=== PATIENT | male | born 1950 | race Caucasian/White ===

== ENCOUNTER 2017-10-24 05:33 | Inpatient (IN) | payer OTHER, MEDICARE ==
[2017-10-24] VITALS (8 sets, daily range): BP systolic 123–156; BP diastolic 63–75; PULSE 60–95; RESP 18–20; TEMP 98–98.6; O2SAT 95–97
[~2017-10-24] VITALS: Ht 172.7 cm; Wt 68.0 kg
[~2017-10-24 05:33] MED LIST: CEPH-460 PO; HYDR-3580 PO; WALKER WHEELS/F1 MIS
[2017-10-24] MEDS ORDERED: POVIDONE IODINE 5% (ANTISEPSIS KIT) 4 APPLICATIONS EACH NARE PRN (06:15)
[2017-10-24] MEDS ORDERED: METOPROLOL TARTRATE 25 MG TAB PO PRN (06:15)
[2017-10-24] MEDS ORDERED: SODIUM CHLORID 0.9% 500 ML IV PRN (06:15)
[2017-10-24] MEDS ORDERED: LACTATED RINGER'S 1000 ML IV PRN (06:15)
[2017-10-24] MEDS ORDERED: CHLORHEXIDINE GLUCONATE 2 % 1 PACK (2 CLOTHS) TOPICAL PRN (06:15)
[2017-10-24] MEDS ORDERED: LISI-515 PO (06:55)
[2017-10-24] MEDS ORDERED: CENTCHW4 CHEW (06:55)
[2017-10-24] MEDS ORDERED: AMLO10 PO (06:55)
[2017-10-24] MEDS ORDERED: ATOR80TA45 PO (06:55)
[2017-10-24] MEDS ORDERED: ASPI-516 CHEW (06:55)
[2017-10-24] MEDS ORDERED: PROTAMINE SULFATE 50 MG/5 ML VIAL ONE (07:18)
[2017-10-24] MEDS ORDERED: BUPIVACAINE HCL PF 0.5% 10 ML VIAL ONE (07:18)
[2017-10-24] MEDS ORDERED: HEPARIN SODIUM - IV 10,000 UNITS/10 ML VIAL ONE (07:18)
[2017-10-24] MEDS ORDERED: HEPARIN-NS/PF INJ 500 ML ONE (07:19)
[2017-10-24] MEDS ORDERED: THROMBIN (TOPICAL) 20,000 UNIT VIAL ONE (07:19)
[2017-10-24 07:33] LABS: AUTOMATED NEUTROPHIL # 5.4 TH/MM3 (1.8-7.7); BASOPHIL % 0.3 % (0.0-2.0); EOSINOPHIL # 0.3 TH/MM3 (0-0.4); EOSINOPHIL % 3.4 % (0.0-4.0); HEMATOCRIT 40.4 % (39.0-51.0); HEMOGLOBIN 14.1 GM/DL (13.0-17.0); LYMPH % 27.5 % (9.0-44.0); LYMPHOCYTE # 2.4 TH/MM3 (1.0-4.8); MEAN CELL VOLUME 96.9 FL (80.0-100.0); MEAN CORPUSCULAR HEMOGLOBIN 33.8 PG (27.0-34.0); MEAN CORPUSCULAR HGB CONC 34.9 % (32.0-36.0); MEAN PLATELET VOLUME 8.5 FL (7.0-11.0); MONO % 7.3 % (0.0-8.0); MONOCYTE # 0.6 TH/MM3 (0-0.9); NEUT % 61.5 % (16.0-70.0); PLATELET COUNT 204 TH/MM3 (150-450); RED BLOOD COUNT 4.17 MIL/MM3 (4.50-5.90); RED CELL DISTRIBUTION WIDTH 14.3 % (11.6-17.2); WHITE BLOOD COUNT 8.7 TH/MM3 (4.0-11.0)
[2017-10-24 07:38] LABS: INTERNATIONAL NORMALIZED RATIO 1.1 RATIO; PROTHROMBIN TIME - PATIENT 11.4 SEC (9.8-11.6)
--- NOTE | 2017-10-24 07:39 | PD.VS.PN ---
Pre-operative Note Pre-operative diagnosis: Asymptomatic high grade LEFT carotid stenosis Planned procedure: L CEA Interval History: Pt has been feeling well; no stroke/TIA/amaurosis symptoms. Ready for surgery. Labs: Laboratory Results Test 10/24/17 07:08 Hematocrit 40.4 % (39.0-51.0) Hemoglobin 14.1 GM/DL (13.0-17.0) Mean Corpuscular Hemoglobin 33.8 PG (27.0-34.0) Mean Corpuscular Hemoglobin Concent 34.9 % (32.0-36.0) Mean Corpuscular Volume 96.9 FL (80.0-100.0) Mean Platelet Volume 8.5 FL (7.0-11.0) Platelet Count 204 TH/MM3 (150-450) Red Blood Count 4.17 MIL/MM3 (4.50-5.90) Red Cell Distribution Width 14.3 % (11.6-17.2) White Blood Count 8.7 TH/MM3 (4.0-11.0) Blood: T&S Imaging: CTA reviewed - high grade L ICA stenosis, 50% R carotid stenosis Orders: NPO Ancef 2g IV OCTOR Post-operative destination: CVICU Operative site marked: Yes Consent: Informed consent has been obtained from Onur Urrutia III. I have explained the procedure in detail and discussed the risks, benefits, and potential complications. All questions have been answered. Andres Charles MD Oct 24, 2017 07:39
[2017-10-24 07:46] LABS: BICARBONATE 25.1 MEQ/L (21.0-32.0); CALCIUM 8.8 MG/DL (8.5-10.1); CREATININE 0.77 MG/DL (0.60-1.30)
[2017-10-24] MEDS ORDERED: PHENYLEPHRINE HCL 10 MG/ML VIAL ONE (08:22)
--- NOTE | 2017-10-24 11:10 | HHI.PR ---
cc: Andres Charles MD Immediate Post Op Note Procedure Date: Oct 24, 2017 Pre Op Diagnosis: High grade LEFT carotid stenosis Post Op Diagnosis: High grade LEFT carotid stenosis Surgeon: Andres Charles Paper Ruler(s): Dwight Alegre Procedure: L CEA Findings: high plaque, above bifurcation Additional Information: awoke neuro intact Complications: none Specimen(s) removed: plaque not for pathology Estimated blood loss: 100mL Anesthesia: General Drains: None Fluids: 1000mL IVF Urinary Output (mLs): 400 Patient to: CVICU Patient Condition: Good Implant/Devices: SEE IMPLANT LOG (if applicable) Date/Time of Procedure: SEE SURGICAL CARE RECORD Andres Charles MD Oct 24, 2017 11:10
[2017-10-24] MEDS ORDERED: MAGNESIUM HYDROXIDE SUSP 30 ML CUP PO PRN (11:15)
[2017-10-24] MEDS ORDERED: LACTULOSE SYRUP 20 GM/30 ML CUP PO PRN (11:15)
[2017-10-24] MEDS ORDERED: SENNOSIDES 8.6 MG TAB PO PRN (11:15)
[2017-10-24] MEDS ORDERED: BISACODYL 10 MG SUPP RECTAL PRN (11:15)
[2017-10-24] MEDS ORDERED: MIDAZOLAM HCL 2 MG/2 ML VIAL ONE (11:25)
[2017-10-24] MEDS ORDERED: GLYCOPYRROLATE 1 MG/5 ML SYRINGE IV PUSH ONE (12:00)
[2017-10-24] MEDS ORDERED: LIDOCAINE HCL 1% PF 5 ML SYRINGE OTHER ONE (12:00)
[2017-10-24] MEDS ORDERED: ROCURONIUM INJ 50 MG/5 ML SYRINGE IV PUSH ONE (12:00)
[2017-10-24] MEDS ORDERED: NEOSTIGMINE 5 MG/5 ML SYRINGE IV PUSH ONE (12:00)
[2017-10-24] MEDS ORDERED: ESMOLOL HCL 100 MG/10 ML VIAL IV ONE (12:00)
[2017-10-24] MEDS ORDERED: ceFAZolin INJ 1,000 MG VIAL IV ONE (12:00)
[2017-10-24] MEDS: NICOTINE 21 MG/24 HR PATCH T-DERMAL SCH (20:01)
[2017-10-24] MEDS: REMOVE OLD NICODERM (NICOTINE) PATCH T-DERMAL SCH (20:01)
[2017-10-24] MEDS: FAMOTIDINE 20 MG TAB PO SCH (20:02)
[2017-10-24] MEDS: ATORVASTATIN 40 MG TAB PO SCH (20:02)
[2017-10-24] MEDS: DOCUSATE SODIUM 50 MG/SENNA 8.6 MG TAB PO SCH (20:02)
[2017-10-24] MEDS: BENZOCAINE 6 MG/MENTHOL 10 MG LOZENGE BUCCAL PRN (20:50)
--- NOTE | 2017-10-24 21:21 | EKG ---
Date Performed: 10/24/2017 Time Performed: 00:51:22 PTAGE: 67 years EKG: Sinus rhythm NONSPECIFIC ST & T-WAVE ABNORMALITY BORDERLINE ECG PREVIOUS TRACING : 09/28/2014 12.28 Since the prior tracing, there has been no significant miller DOCTOR: Cj Aguillon Interpretating Date/Time 10/24/2017 21:20:39
--- NOTE | 2017-10-24 22:36 | PD.CONS ---
[facility] Service Critical Care Medicine Consult Requested By Dr. Charles Reason for Consult perioperative management of medical comorbidities Primary Care Physician Serjio Haider DO History of Present Illness This is a 67-year-old male with a history of hypertension, hyperlipidemia, and carotid stenosis who underwent left carotid endarterectomy. Intraoperative events were uncomplicated. The patient arrives to the CVICU arousing from anesthesia in stable condition. Review of Systems Constitutional: DENIES: Fatigue, Fever, Chills Respiratory: DENIES: Cough, Wheezing, Hemoptysis, Sputum production, Shortness of breath Cardiovascular: DENIES: Chest pain, Palpitations, Syncope, Dyspnea on Exertion , Lower Extremity Edema, Orthopnea Gastrointestinal: DENIES: Abdominal pain, Black stools, Bloody stools, Constipation, Diarrhea, Nausea, Vomiting Genitourinary: DENIES: Urinary frequency, Urinary incontinence Neurologic: DENIES: Abnormal gait, Headache Psychiatric: DENIES: Anxiety, Confusion Past Family Social History Allergies: Coded Allergies: No Known Allergies (Verified Allergy, Unknown, 10/24/17) Past Medical History Carotid artery disease Hyperlipidemia Hypertension Past Surgical History Hernia repair Knee surgery Shoulder surgery Reported Medications Centrum (Multiple Vitamins W/ Minerals) 1 Chew 1 Tab CHEW DAILY Aspirin 81 Mg Chew 81 Mg CHEW DAILY Lisinopril 20 Mg Tab 20 Mg PO DAILY Norvasc (Amlodipine Besylate) 10 Mg Tab 10 Mg PO DAILY Atorvastatin (Atorvastatin Calcium) 80 Mg Tab 80 Mg PO HS Walker with Front Wheels (Device) 1 Mis Mis Ea .XX DIRECTED Active Ordered Medications See MAR Family History Reviewed and found to be noncontributory to his acute illness Social History 0.75 packs per day times many years. 7 drinks a week alcohol use. Denies other drugs. Physical Exam Vital Signs Vital Signs Date Time Temp Pulse Resp B/P (MAP) Pulse Ox O2 Delivery O2 Flow Rate FiO2 10/24/17 21:35 95 Nasal Cannula 2.00 10/24/17 19:40 98.6 72 20 123/68 (86) 97 Arterial Line 10/24/17 19:40 97 Nasal Cannula 2.00 10/24/17 19:00 77 10/24/17 15:00 97 Nasal Cannula 2.00 10/24/17 15:00 78 10/24/17 15:00 98.2 60 18 123/70 (87) 97 10/24/17 11:30 95 10/24/17 11:15 98.0 85 20 131/75 (93) 95 156/63 (94) 10/24/17 11:15 95 Nasal Cannula 2.00 10/24/17 06:46 97.9 83 18 132/68 (89) 99 Physical Exam GENERAL: Middle-aged male, sitting in bed, no acute distress HEENT: Normocephalic. Atraumatic. Pupils equal, round, reactive, conjugate. Mucous membranes are moist NECK: Trachea is midline. There is no JVD. Left neck incision clean dry and intact without evidence of hematoma CHEST: Liver. Nasal cannula oxygen. Equal chest rise. CARDIOVASCULAR: Normal rate Regular rhythm. Sinus by telemetry ABDOMEN: Soft, nontender, nondistended. No guarding. MUSCULOSKELETAL: Pulses 2+. No peripheral edema. NEUROLOGICAL: RASS 0. Neuro intact. No focal deficits. Laboratory Laboratory Tests Test 10/24/17 07:08 White Blood Count 8.7 Red Blood Count 4.17 Hemoglobin 14.1 Hematocrit 40.4 Mean Corpuscular Volume 96.9 Mean Corpuscular Hemoglobin 33.8 Mean Corpuscular Hemoglobin Concent 34.9 Red Cell Distribution Width 14.3 Platelet Count 204 Mean Platelet Volume 8.5 Neutrophils (%) (Auto) 61.5 Lymphocytes (%) (Auto) 27.5 Monocytes (%) (Auto) 7.3 Eosinophils (%) (Auto) 3.4 Basophils (%) (Auto) 0.3 Neutrophils # (Auto) 5.4 Lymphocytes # (Auto) 2.4 Monocytes # (Auto) 0.6 Eosinophils # (Auto) 0.3 Basophils # (Auto) 0.0 CBC Comment DIFF FINAL Differential Comment Prothrombin Time 11.4 Prothromb Time International Ratio 1.1 Blood Urea Nitrogen 11 Creatinine 0.77 Random Glucose 98 Calcium Level 8.8 Sodium Level 139 Potassium Level 3.7 Chloride Level 107 Carbon Dioxide Level 25.1 Anion Gap 7 Estimat Glomerular Filtration Rate 100 Result Diagram: 10/24/17 0708 10/24/17 0708 Assessment and Plan Assessment and Plan Assessment: 67-year-old male postop day 0 status post left carotid endarterectomy. We'll monitor closely in ICU setting. Advance diet. Blood pressure monitoring. Restart home meds. POD 0 s/p left CEA - pain management per Dr. Charles - frequent neuro checks - close BP monitoring Hypertension - restart home meds Hyperlipidemia - restart home statin CAD - restart ASA Tobacco Abuse - counseled cessation - nebs - pulmonary toilet. d/c Glasgow and art line in the AM. advance diet for breakfast ambulate with assist Critical care medicine will continue to follow as long as patient remains in the CVICU. Tone Yun MD Oct 24, 2017 22:36
[2017-10-24] MEDS: HYDROmorphone HCL 2 MG TAB PO PRN (23:09)
[2017-10-25] VITALS (18 sets, daily range): BP systolic 131–149; BP diastolic 58–73; PULSE 68–104; RESP 16–20; TEMP 97.9–98.8; O2SAT 92–96
[2017-10-25] MEDS: BENZOCAINE 6 MG/MENTHOL 10 MG LOZENGE BUCCAL PRN ×3 (01:40→12:30)
[2017-10-25 04:35] LABS: HEMATOCRIT 36.1 % (39.0-51.0); HEMOGLOBIN 12.3 GM/DL (13.0-17.0); MEAN CORPUSCULAR HEMOGLOBIN 33.4 PG (27.0-34.0); MEAN CORPUSCULAR HGB CONC 34.1 % (32.0-36.0); MEAN PLATELET VOLUME 9.3 FL (7.0-11.0); PLATELET COUNT 176 TH/MM3 (150-450); RED BLOOD COUNT 3.69 MIL/MM3 (4.50-5.90); RED CELL DISTRIBUTION WIDTH 14.1 % (11.6-17.2); WHITE BLOOD COUNT 11.5 TH/MM3 (4.0-11.0)
[2017-10-25 04:50] LABS: BICARBONATE 26.1 MEQ/L (21.0-32.0); CALCIUM 8.5 MG/DL (8.5-10.1); CREATININE 0.79 MG/DL (0.60-1.30)
[2017-10-25] MEDS ORDERED: FUROSEMIDE 20 MG/2 ML VIAL IV PUSH ONE (06:30)
[2017-10-25] MEDS ORDERED: RESP: ALBUTEROL 2.5 MG/IPRATROPIUM 0.5 MG NEB (PRN) INH (06:30)
[2017-10-25] MEDS: HYDROmorphone HCL 2 MG TAB PO PRN ×3 (06:46→20:49)
[2017-10-25] MEDS: DOCUSATE SODIUM 50 MG/SENNA 8.6 MG TAB PO SCH ×2 (08:57→20:48)
[2017-10-25] MEDS: ASPIRIN 325 MG TAB PO SCH (08:57)
[2017-10-25] MEDS: FAMOTIDINE 20 MG TAB PO SCH ×2 (08:57→20:48)
[2017-10-25] MEDS: ENOXAPARIN SODIUM 40 MG/0.4 ML SYRINGE SQ SCH (08:57)
[2017-10-25] MEDS: NICOTINE 21 MG/24 HR PATCH T-DERMAL SCH ×2 (09:00→20:49)
--- NOTE | 2017-10-25 09:09 | MP ---
cc: MINI CHARLES DATE OF SURGERY 10/24/2017 PREOPERATIVE DIAGNOSIS Asymptomatic high-grade left carotid stenosis. POSTOPERATIVE DIAGNOSIS Asymptomatic high-grade left carotid stenosis. PROCEDURE Left carotid endarterectomy MEDICATIONS Mini Charles MD [employer] SURGEON Dwight Alegre ANESTHESIA General INDICATION Mr. Urrutia is a gentleman with asymptomatic high-grade carotid stenosis who is offered carotid endarterectomy and he is taken to the operating room for this procedure. DESCRIPTION OF THE PROCEDURE Informed consent was obtained. The patient was taken to the operating room, placed supine on the operating room table and appropriate time-out was taken to assure the patient's identity, operative site and planned procedure. Administration of 2 grams Ancef was initiated prior to the skin incision and discontinued after a single preoperative dose. Everyone in the room agreed with the time out and we proceeded. His left neck was prepped and draped. An incision made along the anterior border of sternocleidomastoid, carried down through the subcutaneous tissues with electrocautery. The facial vein was divided between silk ties. The jugular vein was mobilized laterally and the common carotid artery, external carotid arteries, superior thyroid artery and internal carotid artery were all dissected free. The external, internal, and common carotid arteries were circumferentially dissected freeing and Vesseloops placed on his blood vessels. The patient systemically heparinized and throughout the remainder of the case, the ACT was kept greater than 250. With pharmacological augmentation of the blood pressure, distal and proximal control of the internal and common carotid arteries respectively were obtained with profunda clamps and the external was controlled with a profunda clamped. A longitudinal arteriotomy was made extending from the bifurcation of the common carotid out for about 6 cm cephalad to the internal carotid artery. The artery was endarterectomized without difficulty and a nice endpoint distally was obtained. The bovine pericardial patch was then brought up on the lung field and sewn to the patch with running 5-0 Prolene suture and the patient was flushed and noted to be hemostatic. The clamps were all released and there was a nice Doppler signal in the distal ICA. The patch was made hemostatic. With the Bovie, repair sutures, Surgicel and spray thrombin, the surgical field was made hemostatic. There were no EEG changes throughout the entire case. The heparin reversed with protamine and the wound was closed with 2-0 Polysorb and 4-0 Monocryl. The sponge and needle counts were correct at the end of the case. At the conclusion of the case, the patient was awoken, extubated, neurologically intact and taken to the ICU in stable condition. MD JORGE Dean/RELL /8:13 PM /8:34 AM [email or web address]
--- NOTE | 2017-10-25 09:46 | PD.VS.PN ---
Subjective POD #: 1 Procedure(s): L CEA Subjective/Hospital Course 67/M S/P L CEA Pt w/o any neurological deficits Pt denied H/A Incision I/C/D Objective Vitals/I&O Date Time Temp Pulse Resp B/P (MAP) Pulse Ox O2 Delivery O2 Flow Rate FiO2 10/25/17 07:00 76 10/25/17 07:00 95 Nasal Cannula 3.00 10/25/17 07:00 98.7 79 16 149/73 (98) 95 10/25/17 04:01 76 10/25/17 03:58 68 20 143/71 (95) 94 10/25/17 03:58 94 Nasal Cannula 2.00 10/24/17 23:24 79 10/24/17 23:21 95 Nasal Cannula 2.00 10/24/17 23:21 98.1 75 20 141/65 (90) 95 10/24/17 21:35 95 Nasal Cannula 2.00 10/24/17 19:40 98.6 72 20 123/68 (86) 97 Arterial Line 10/24/17 19:40 97 Nasal Cannula 2.00 10/24/17 19:00 77 10/24/17 15:00 97 Nasal Cannula 2.00 10/24/17 15:00 78 10/24/17 15:00 98.2 60 18 123/70 (87) 97 10/24/17 11:30 95 10/24/17 11:15 98.0 85 20 131/75 (93) 95 156/63 (94) 10/24/17 11:15 95 Nasal Cannula 2.00 10/25/17 10/25/17 10/25/17 07:00 15:00 23:00 Intake Total 960 ml Output Total 50 ml Balance 910 ml Exam: GENERAL: Afebrile 67/M/GCS15, NAD SKIN: Warm and dry. NECK: Supple, trachea midline. No JVD or lymphadenopathy. left neck incision well approximated/intact w/ surgical glue w/o D/S CARDIOVASCULAR: NSR on CM RESPIRATORY: No accessory muscle use. GASTROINTESTINAL: Abdomen distended/ firm Palpable radial pulses CN 2-12 intact Laboratory Laboratory Tests Test 10/25/17 03:31 White Blood Count 11.5 Red Blood Count 3.69 Hemoglobin 12.3 Hematocrit 36.1 Mean Corpuscular Volume 98.0 Mean Corpuscular Hemoglobin 33.4 Mean Corpuscular Hemoglobin Concent 34.1 Red Cell Distribution Width 14.1 Platelet Count 176 Mean Platelet Volume 9.3 Blood Urea Nitrogen 9 Creatinine 0.79 Random Glucose 107 Calcium Level 8.5 Sodium Level 138 Potassium Level 3.5 Chloride Level 105 Carbon Dioxide Level 26.1 Anion Gap 7 Estimat Glomerular Filtration Rate 98 Assessment and Plan Assessment: (1) Left-sided carotid artery disease Plan 67/M S/P L CEA POD 1 Pt doing well Pain controlled Pt w/o any neurological deficits Glasgow removed- Pt voids 50 mls Bladder scanner results -487 mls Plan Transfer to CPCU Reinsert Glasgow cath PT/OOB/Ambulate Continue Pain Control Continue Neuro checks Esther Vitale NP [facility] [phone] Discharge Planning Tomorrow am Esther Vitale Oct 25, 2017 09:46
[2017-10-25] MEDS ORDERED: OXYC1CAP PO (10:48)
[2017-10-25] MEDS ORDERED: LISINOPRIL 20 MG TAB PO SCH (11:15)
[2017-10-25] MEDS: RESP: ALBUTEROL 2.5 MG/IPRATROPIUM 0.5 MG NEB (SCH) INH ×3 (11:24→21:36)
[2017-10-25] MEDS: ATORVASTATIN 40 MG TAB PO SCH (20:49)
[2017-10-25] MEDS: REMOVE OLD NICODERM (NICOTINE) PATCH T-DERMAL SCH (21:00)
[2017-10-25] MEDS ORDERED: METOPROLOL TARTRATE 5 MG/5 ML VIAL IV PUSH ONE (23:15)
[2017-10-26] VITALS (9 sets, daily range): BP systolic 147–157; BP diastolic 67–70; PULSE 82–114; RESP 18; TEMP 97.9–98.1; O2SAT 90
[2017-10-26] MEDS: HYDROmorphone HCL 2 MG TAB PO PRN (01:37)
--- NOTE | 2017-10-26 08:42 | PD.VS.PN ---
Subjective POD #: 2 Procedure(s): L CEA Subjective/Hospital Course neuro intact kept extra night for urinary retention voided on his own atilio po no HERNANDEZ Objective Vitals/I&O Date Time Temp Pulse Resp B/P (MAP) Pulse Ox O2 Delivery O2 Flow Rate FiO2 10/26/17 06:00 85 10/26/17 05:00 99 10/26/17 04:50 98.1 101 18 157/67 (97) 90 10/26/17 04:00 114 10/26/17 03:10 94 Room Air 10/26/17 03:00 89 10/26/17 02:00 82 10/26/17 01:00 92 10/26/17 00:01 97.9 111 18 147/70 (95) 90 10/26/17 00:00 108 10/25/17 23:01 94 Room Air 10/25/17 23:00 89 10/25/17 22:00 104 10/25/17 21:40 92 21 10/25/17 21:00 98 10/25/17 20:00 93 Room Air 10/25/17 20:00 97.9 97 18 144/73 (96) 93 10/25/17 20:00 102 10/25/17 19:00 93 10/25/17 18:00 92 10/25/17 17:00 86 10/25/17 16:02 80 10/25/17 16:02 92 Room Air 10/25/17 16:02 97.9 80 20 131/58 (82) 92 10/25/17 15:00 78 10/25/17 14:00 78 10/25/17 13:00 92 10/25/17 12:00 68 10/25/17 12:00 95 Room Air 10/25/17 12:00 98.8 68 20 137/64 (88) 95 10/25/17 11:00 70 10/25/17 10:23 96 Nasal Cannula 3.00 10/26/17 10/26/17 10/26/17 07:00 15:00 23:00 Intake Total 680 ml Output Total 800 ml 150 ml Balance -800 ml 530 ml Exam: neck incision c/d/i neuro intact, good B strength Assessment and Plan Assessment: (1) Left-sided carotid artery disease Plan POD#2 s/p L CEA neuro intact d/c today Discharge Planning today Andres Charles MD Oct 26, 2017 08:42
--- NOTE | 2017-10-26 08:43 | PD.VS.DC ---
cc: Andres Charles MD Discharge Summary Admission Date: Oct 24, 2017 at 05:33 Discharge Date: Oct 26, 2017 Admission Diagnosis: Discharge Diagnosis: (1) Left-sided carotid artery disease ICD Codes: I77.9 - Disorder of arteries and arterioles, unspecified Brief History from admission Asymptomatic high grade LEFT carotid stenosis. Offered prophylactic CEA. Procedure(s): L CEA Significant Findings Laboratory Tests Test 10/24/17 07:08 10/25/17 03:31 Red Blood Count 4.17 MIL/MM3 (4.50-5.90) 3.69 MIL/MM3 (4.50-5.90) White Blood Count 11.5 TH/MM3 (4.0-11.0) Hemoglobin 12.3 GM/DL (13.0-17.0) Hematocrit 36.1 % (39.0-51.0) Random Glucose 107 MG/DL (74-106) Hospital Course: The patient tolerated the procedure well and had no neuro changes post- operatively. Kept a second night for urinary retention, resolved by time of d/ c. Discharge Condition: Good Discharge Disposition: Discharge Home Any questions or concerns: Call [facility] at [facility] [phone] Andres Charles MD Oct 26, 2017 08:43
[2017-10-26] MEDS: DOCUSATE SODIUM 50 MG/SENNA 8.6 MG TAB PO SCH (09:00)
[2017-10-26] MEDS: FAMOTIDINE 20 MG TAB PO SCH (09:00)
[2017-10-26] MEDS: ASPIRIN 325 MG TAB PO SCH (09:00)
[2017-10-26] MEDS: RESP: ALBUTEROL 2.5 MG/IPRATROPIUM 0.5 MG NEB (SCH) INH (09:07)
[2017-10-26] MEDS: ENOXAPARIN SODIUM 40 MG/0.4 ML SYRINGE SQ SCH (10:00)
== END 2017-10-26 11:25 | disposition home or self-care (01) | DRG 38 ==
LOC: HSDI 05:33 → HCVI 11:17 → HCPC 10-25 09:50
PROVIDERS: ADMIT Surgery; ATTEND Surgery
PROC: 03UL0KZ Supplement Left Internal Carotid Artery with Nonautologous Tissue Substitute, Open Approach (ICD-10-PCS; 2017-10-24)
PROC: 03CL0Z6 (ICD-10-PCS; principal; 2017-10-24 08:55)
DX: I65.22 Occlusion and stenosis of left carotid artery (principal); Q60.0 Renal agenesis, unilateral; I10 Essential (primary) hypertension; E78.5 Hyperlipidemia, unspecified; I25.10 Atherosclerotic heart disease of native coronary artery without angina pectoris; R33.9 Retention of urine, unspecified; F17.210 Nicotine dependence, cigarettes, uncomplicated
CPT/HCPCS: 80048; 85025; 85027; 85610; 86850; 86900; 86901; 93005; 94150; 94640; 94664; 94667; 94668; C1768; J0690; J1644; J1650; J1940; J2250; J2370; J2710; J2720; J3010; J7120